=== PATIENT | female | born 2000 | race Caucasian/White ===

== ENCOUNTER → 2023-11-08 06:20 | Day surgery (SDC) | payer BC, SELFPAY | LOC: GI 06:20 | PROVIDERS: ATTENDING PHYSICIAN Internal Medicine Gastroenterology | DX: R19.7 Diarrhea, unspecified (principal) | CPT/HCPCS: 45380; 88305 ==

== ENCOUNTER 2025-07-17 19:31 | Emergency (ER) | payer BC, SELFPAY ==
[2025-07-17 19:56] LABS: Hematocrit 40.9 % (37.0-47.0); Hemoglobin 13.5 g/dL (12.0-16.0); Mean Corp Hgb Conc. 33.0 g/dL (33.0-37.0); Mean Corpuscular Volume 73.6 fL (81.0-99.0); Nucleated Red Blood Cells % 0 %; Platelet Count 348 10^3/uL (130-400); Red Cell Dist. Width 14.0 % (11.5-14.5)
[2025-07-17 20:18] LABS: ALT (SGPT) 16 U/L (0-35); AST (SGOT) 23 U/L (14-36); Albumin 4.6 g/dl (3.5-5.0); Alkaline Phosphatase 66 U/L (38-126); Blood Urea Nitrogen 18 mg/dl (7-17); Calcium 9.9 mg/dl (8.4-10.2); Carbon Dioxide 28 mmol/L (22-30); Chloride 100 mmol/L (98-107); Glucose 89 mg/dl (70-99); Lipase 82 U/L (23-300); Potassium 3.9 mmol/L (3.5-5.1); Sodium 133 mmol/L (135-145); Total Protein 7.5 g/dl (6.3-8.2); eGFR > 60.00
[2025-07-17 21:24] VITALS: BP 126/85
[2025-07-17 23:25] VITALS: BP 116/74
--- NOTE | 2025-07-17 23:29 | ED.GENMED ---
History of Present Illness
General
Chief Complaint: Abdominal Pain
Source: patient
Exam Limitations: none
Time Seen by Provider: 07/17/25 22:26
Nursing documentation reviewed up to this point in time: agreed with
History of Present Illness
History of Present Illness:
Note:
CHIEF COMPLAINT(S)
Severe abdominal pain post-antibiotic administration.
HISTORY OF PRESENT ILLNESS
The patient is a 25-year-old female who presents with severe abdominal pain described as occurring precisely 12 hours after taking an antibiotic prescribed for a recent foot surgery. The patient described the pain as severe enough to cause
difficulty breathing and stated, 'I was hunched over because I could not breathe.' Each episode of pain lasted approximately one hour. The patient reported that the pain recurred the next day following the second dose of the antibiotic, prompting a
consultation with the surgeon who advised discontinuing the antibiotic and seeking urgent care. Laboratory work and an ultrasound conducted at urgent care were reported to be normal. The patient is concerned that the symptoms may be related to
gallbladder issues or a sphincter of Oddi spasm and mentioned experiencing some nausea. The patient expressed concern about continuing the antibiotic given the ongoing foot infection. An additional abdominal X-ray was planned for further evaluation.
PAST MEDICAL AND SURGICAL HISTORY
The patient has undergone recent foot surgery, which led to being prescribed the antibiotic.
PHYSICAL EXAM
General: Alert, no acute distress.
Skin: Warm, dry.
Head: Normocephalic, atraumatic.
Neck: Supple, trachea midline.
Eye, Ears, Nose, Mouth, and Throat: Oral mucosa moist.
Cardiovascular: Normal peripheral perfusion, No edema.
Respiratory: Respirations are non-labored.
Gastrointestinal: Abdomen nondistended
Back: Normal range of motion, Normal alignment.
Musculoskeletal: Normal range of motion, normal strength.
Neurological: Alert and oriented to person, place, time, and situation, No focal neurological deficit observed.
Psychiatric: Cooperative, appropriate mood & affect.
PROBLEM LIST
- Acute: Abdominal pain, foot infection post-surgery.
PLAN
- Discontinue the current antibiotic as per surgeons advice.
- Perform an abdominal X-ray to further evaluate the possible presence of gallstones or other abnormalities.
- Consider alternative management for the foot infection given the reaction to the antibiotic.
DIFFERENTIAL DIAGNOSIS
The Differential Diagnosis includes, in no particular order and is not limited to:
1. Gallstone or biliary colic
2. Sphincter of Oddi dysfunction
3. Pancreatitis
4. Gastrointestinal spasm
5. Peptic ulcer disease
6. Constipation-related pain
7. Small bowel obstruction
8. Atypical appendicitis
9. Gastroesophageal reflux disease (GERD)
10. Adverse drug reaction to the antibiotic
CARE-UPDATE
07/17/25 - 22:40
Patient does not wish to get a further X-ray or a CT scan, expressing concern about potential unnecessary radiation and the possibility of losing health insurance. Currently, the patient is not experiencing significant pain, and symptoms appear to
be subsiding. They are advised to monitor symptoms at home and return if they worsen. The decision was made to postpone additional diagnostic imaging unless future evaluations suggest a more serious condition. The patients current lab results are
normal, supporting a less aggressive approach for now.
Disposition:
SUMMARY OF ENCOUNTER
25-year-old female presented with right upper quadrant pain after being evaluated at an urgent care where [place] sign was noted. She underwent an ultrasound which was negative for acute findings. Laboratory tests, including liver function tests
(LFTs), were reported to be normal. An abdominal X-ray showed stool in the right upper quadrant with gas. Based on these findings, the patients presentation was assessed as likely constipation-related abdominal pain.
DISPOSITION
Discharge
ASSESSMENT
Abdominal pain, likely due to constipation.
INDEPENDENT REVIEW OF LABS AND INTERPRETATION OF TESTS
My independent review of the laboratory tests indicates normal liver function tests. My independent interpretation of the abdominal X-ray shows stool in the right upper quadrant with gas, consistent with constipation.
PLAN
Discontinue the current antibiotic as per surgeons advice. Alternative management for the foot infection to be considered, and symptoms of constipation are to be managed with dietary modifications and possibly stool softeners.
PATIENT EDUCATION AND COUNSELING
The patient was educated on the potential link between antibiotics and gastrointestinal symptoms, as well as provided guidance on managing constipation through dietary changes and increased fluid intake.
FOLLOW-UP INSTRUCTIONS
Follow up with a primary care physician if symptoms persist. If symptoms worsen, return to the emergency department.
MEDICAL DECISION MAKING
-Complexity of Data Reviewed: Acute condition affecting care, including abdominal pain and foot infection post-surgery. Differential diagnosis considered: gallstone or biliary colic, sphincter of Oddi dysfunction, pancreatitis, gastrointestinal
spasm, peptic ulcer disease, constipation-related pain, small bowel obstruction, atypical appendicitis, GERD, adverse drug reaction to the antibiotic.
-Data:
Category 1: Non-emergency department records reviewed.
Category 2: My independent interpretation of the abdominal X-ray suggests constipation.
Category 3: Management of the patients care discussed with a surgeon regarding the antibiotic discontinuation.
-Risk: Consideration of Admission/Observation: Escalation of care including admission/observation was considered given the complexity and risk of the patients presenting complaint, exam findings, and the underlying comorbidities. However, ultimately
I feel the patient is safe for outpatient management with close follow-up. Reasoning: Work-up is reassuring, doesnt reveal any acute life/organ-threatening processes, patients symptoms are well-controlled upon reevaluation, reexamination is
reassuring, vitals are stable, patient is agreeable with discharge, reliable for follow-up.
DIAGNOSIS
Abdominal pain, unspecified (R10.9); Constipation (K59.00)
Past History
Past History
ED Past Medical History: Asthma
ED Past Surgical History: Tonsilectomy and Other (tubes in the ears)
Social History
Tobacco: Non-smoker
Alcohol: None
Drug: None
Personal: Single
Living: with family
Employment: Student
Phy Exam
Physical Exam
Physical Exam:
.
Course
Orders/Labs/Results
Orders:
Orders
07/17/25 19:39
EKG [Electrocardiogram (*1)] Urgent
Reason for Study: Abdominal Pain
EKG- Treatment ONCE
07/17/25 19:43
US Abdomen Complete/Upper Urgent
Comment:
Reason For Exam: RUQ pain
07/17/25 19:47
CBC/With Diff [Complete Blood Count/With Diff] Urgent
CMP [Comprehensive Metabolic Panel] Urgent
Lipase Urgent
07/17/25 22:33
CR Obstruct Series W/pa Chest Urgent
Reason For Exam: ruq abd pain
Abnormal Lab Results
07/17/25
19:47
RBC 5.56 H 10^6/uL
(4.20-5.40)
MCV 73.6 L fL
(81.0-99.0)
MCH 24.3 L pg
(27.0-31.0)
Absolute Lymphs (auto) 4.2 H 10^3/uL
(1.2-3.4)
Absolute Monos (auto) 0.7 H 10^3/uL
(0.1-0.6)
Sodium 133 L mmol/L
(135-145)
BUN 18 H mg/dl
(7-17)
07/17/25 19:47
07/17/25 19:47
Vital Signs
Initial and Last Documented VS:
Initial Vital Signs
Temp Pulse Resp Pulse Ox
98.7 F 84 14 100
07/17/25 19:35 07/17/25 19:35 07/17/25 19:35 07/17/25 19:35
Last Documented Vital Signs
Temp Pulse Resp BP Pulse Ox
97.5 F 70 14 116/74 100
07/17/25 23:25 07/17/25 23:25 07/17/25 19:35 07/17/25 23:25 07/17/25 23:31
*Radiology
Radiology exam reviewed: radiology read reviewed and all reviewed NAD by ED Provider
*Pulse Oximetry
SaO2: 100
Oxygen Mode of Delivery: Room air
Patient hypoxic: no
*Critical Care Note
Total Time (30-74mins, 75-104mins- exclusive of procedures): Not Applicable
ED Attending Note
-
Portions of this chart may have been created with voice recognition software.� Occasional wrong word or��sound alike� substitutions may have occurred due to the inherent limitations of voice recognition software.
Discharge Plan
Departure
Patient Disposition: Home (Routine Discharge)
Date of Disposition: 07/17/25
Time of Disposition: 23:30
Patient with high blood pressure during this ER visit?: No
Condition: Good
Discharge Problem:
Abdominal pain
Instructions: Clear Liquid Diet, Constipation, Adult (DC), Abdominal Pain
Prescriptions:
No Action
norethin-e.estradiol triphasic [[place] (28)] 1 EACH tablet
1 ea PO HS
sertraline 50 MG tablet
75 mg PO HS
Referrals:
[facility] [Outside]
NONE,* [Family Provider, Internal Medicine]
Stand Alone Forms: Return to Work
Activity Restrictions/Additional Instructions:
Thank You for choosing [facility].
It was a pleasure meeting you and taking part in your care. We hope for your continued healing and wellness.
Please read discharge instructions in their entirety. However, they are for general education and may not describe your exact diagnosis at discharge. Information on your ER visit and medical conditions were discussed with you along with appropriate
follow up information...
If indicated, please take your medications as instructed and indicated on discharge paperwork.
Please schedule a follow up appointment as directed. Call to schedule an appointment
Please return to the emergency department with ANY change in, persisting, or worsening of symptoms. If any of your symptoms do not improve, or persist, or become more severe within 6-12 hours, please return to the emergency department for further
care.
Please return to the emergency department if you develop a headache, neck pain/stiffness, fever greater than 100.4F, chest pain, shortness of breath, persistent nausea, vomiting, slurred speech, difficulty walking, numbness/tingling, weakness, signs
of infection or any other symptoms that are worrisome to you.
If you have any questions or concerns please do not hesitate to call the Hospital at .
Interventions
Interventions:
*Risk Screen - Suicide Last Done: 07/17/25 19:35
*General Assessment Last Done: 07/17/25 19:35
*Neglect/Abuse Screening Last Done: 07/17/25 19:35
*ED- Fall Risk Assessment Last Done: 07/17/25 19:35
*ED COVID-19 Vaccine History Last Done: 07/17/25 19:35
*ED Influenza Vaccine History Last Done: 07/17/25 19:35
*Nursing Disposition Last Done: 07/17/25 23:35
WT-Qrqgsj-Jmnjmevuqn Assessment Last Done: 07/17/25 21:26
Discharge Date and Time
Discharge Date/Time: 07/17/25 23:35
Print Language: DIVEHI
== END 2025-07-17 23:35 | disposition home or self-care (01) ==
LOC: EMR 19:31
PROVIDERS: Emergency Medicine; EMERGENCY PHYSICIAN Student in an Organized Health Care Education/Training Program
DX: R10.11 Right upper quadrant pain (principal); K59.00 Constipation, unspecified; J45.909 Unspecified asthma, uncomplicated
CPT/HCPCS: 99284; 74022; 76700; 80053; 83690; 85025; 93005